=== PATIENT | female | born 2005 | race Two or more races ===

== ENCOUNTER 2024-12-14 15:15 | Observation (INO) | payer OTHER, SELFPAY ==
[2024-12-14 15:32] VITALS: BP 109/60; PULSE 85
[2024-12-14 15:36] VITALS: BP 109/60; PULSE 85; RESP 18; RESP 99; TEMP 36.9; O2SAT 99; BMI 28.8
[2024-12-14 15:53] VITALS: BP 107/74; PULSE 96
== END 2024-12-14 16:10 | disposition home or self-care (01) ==
PROVIDERS: Admitting Provider Student in an Organized Health Care Education/Training Program; PCP Family Medicine; Visit Provider Student in an Organized Health Care Education/Training Program
DX: Z34.02 Encounter for supervision of normal first pregnancy, second trimester (principal); Z3A.27 27 weeks gestation of pregnancy
CPT/HCPCS: 59899

== ENCOUNTER 2025-01-07 12:20 | Observation (INO) | payer OTHER, SELFPAY ==
[2025-01-07] VITALS (17 sets, daily range): BP systolic 120; BP diastolic 71; PULSE 90–129; RESP 18–98; TEMP 37.2; O2SAT 93–99; BMI 29.8
[2025-01-07] MEDS: RINGERS LACTATED 1000 ML 1,000 ML 999 ML IV (13:10)
[2025-01-07 13:13] LABS: Collection Type, Urine Clean Catch
[2025-01-07 13:29] LABS: Bacteria,Urine 1+; Bilirubin,Urine Negative (Negative); Blood,Urine Negative (Negative); Budding Yeast,Urine Present; Color,Urine Lt-Yellow (Lt Yel-Yel); Glucose, Urine Negative (Negative); Ketones,Urine Negative (Negative); Leukocyte Esterase,Urine Positive (Negative); Nitrite,Urine Negative (Negative); PH,Urine 6.5 (5.0-7.0); Protein,Urine Negative (Neg - Trace); RBC,Urine 19 /hpf (0-3); Specific Gravity,Urine 1.009 (1.001-1.035); Squamous Epithelial Cell,Urine 17 /hpf (0-5); Urobilinogen,Urine Negative mg/dL (0.0-1.0); WBC,Urine 49 /hpf (0-5)
[2025-01-07 13:50] LABS: Clarity,Urine Hazy (Clear/Hazy)
--- NOTE | 2025-01-07 14:23 | PC.NURSE ---
discharge insrructions reviewed with pt return if frequent ucs, vag bleeding like a period, rupture of membranes, decreased movement, kick count, copy of instructions given, pt agrees/understands
== END 2025-01-07 14:17 | disposition home or self-care (01) ==
PROVIDERS: Admitting Provider Student in an Organized Health Care Education/Training Program; Visit Provider Student in an Organized Health Care Education/Training Program
DX: O26.893 Other specified pregnancy related conditions, third trimester (principal); R10.9 Unspecified abdominal pain; Z3A.30 30 weeks gestation of pregnancy
CPT/HCPCS: 59025; 59899; 81001; J7120

== ENCOUNTER 2025-01-12 15:33 | Outpatient (CLI) | payer OTHER, SELFPAY ==
[2025-01-12 15:49] VITALS: TEMP 36.8; BMI 30.4
[2025-01-12 15:50] VITALS: BP 129/72; PULSE 96; RESP 100; RESP 18; TEMP 36.8
== END 2025-01-12 16:20 | disposition home or self-care (01) ==
LOC: S4S1 15:34 → S4SX 15:35
PROVIDERS: PCP Obstetrics & Gynecology; Referring Provider Obstetrics & Gynecology; Visit Provider Obstetrics & Gynecology
DX: O36.8130 Decreased fetal movements, third trimester, not applicable or unspecified (principal); Z3A.31 31 weeks gestation of pregnancy
CPT/HCPCS: 59025

== ENCOUNTER 2025-01-14 10:36 | Observation (INO) | payer OTHER, SELFPAY ==
[2025-01-14 10:44] VITALS: BMI 30.2
[2025-01-14 10:49] VITALS: BP 118/71; PULSE 110
--- NOTE | 2025-01-14 10:54 | XR_ITS ---
Examination: Complete OB ultrasound greater than 14 weeks Date and time of exam: January 14, 2025 1239 hours INDICATIONS: Patient fell today with lower back pain Findings: Viable intrauterine single fetus with single amniotic sac presentation cephalic Cardiac motion 144 BPM Placenta posterior grade 2 Umbilical cord insertion 3 vessel seen Amniotic fluid index 13.1 cm spine maternal right Cervix 3.4 cm Ovaries obscured by bowel gas. Composite estimated gestational age based on BPD, head circumference, abdominal circumference, femur length is 32 weeks 1 day Estimated weight 1902.9 g. Survey of intracranial anatomy, spinal anatomy, abdominal anatomy, four-chamber heart performed with no abnormalities identified. Impression: Viable intrauterine gestation cephalic presentation Placenta posterior grade 2 no abruption.
[2025-01-14 10:56] VITALS: BP 118/71; PULSE 110; RESP 100; RESP 16; TEMP 37; O2SAT 100
[2025-01-14 12:55] VITALS: BP 111/66; PULSE 88
[2025-01-14] MEDS: cefTRIAXone 1,000 MG, LIDOCAINE 1% 20 ML 2.1 ML IM (14:30)
[2025-01-14 14:51] LABS: Collection Type, Urine Clean Catch
[2025-01-14 14:59] LABS: Bilirubin,Urine Negative (Negative); Blood,Urine Negative (Negative); Clarity,Urine Clear (Clear/Hazy); Color,Urine Lt-Yellow (Lt Yel-Yel); Culture Indicated,Urine Not Indicated; Glucose, Urine Negative (Negative); Ketones,Urine Negative (Negative); Leukocyte Esterase,Urine Positive (Negative); Nitrite,Urine Negative (Negative); PH,Urine 7.5 (5.0-7.0); Protein,Urine Negative (Neg - Trace); RBC,Urine 2 /hpf (0-3); Squamous Epithelial Cell,Urine 1 /hpf (0-5); Urobilinogen,Urine Negative mg/dL (0.0-1.0); WBC,Urine 1 /hpf (0-5)
== END 2025-01-14 14:45 | disposition home or self-care (01) ==
PROVIDERS: Admitting Provider Obstetrics & Gynecology; Visit Provider Obstetrics & Gynecology
DX: O9A.213 Injury, poisoning and certain other consequences of external causes complicating pregnancy, third trimester (principal); S39.91XA Unspecified injury of abdomen, initial encounter; S39.92XA Unspecified injury of lower back, initial encounter; Z3A.32 32 weeks gestation of pregnancy; W06.XXXA Fall from bed, initial encounter
CPT/HCPCS: 59025; 59899; 76805; 81001; 96372; J0696; J3490

== ENCOUNTER 2025-02-10 17:00 | Observation (INO) | payer OTHER, MEDICAID, SELFPAY ==
[2025-02-10] VITALS (23 sets, daily range): BP systolic 124–136; BP diastolic 81–89; PULSE 86–126; RESP 18–100; TEMP 36.8–37.2; O2SAT 98–99; BMI 31.1
[2025-02-10 18:30] LABS: ROM Kit Lot # 57807112
[2025-02-10 18:31] LABS: ROM Swab Mixed By: YOUNB; Swb Mxed in Solvent 1 min? Yes
[2025-02-10 18:32] LABS: Rupture of Fetal Membranes Negative (Negative)
== END 2025-02-10 19:30 | disposition home or self-care (01) ==
PROVIDERS: Admitting Provider Obstetrics & Gynecology; Visit Provider Obstetrics & Gynecology
DX: Z34.03 Encounter for supervision of normal first pregnancy, third trimester (principal); Z3A.35 35 weeks gestation of pregnancy
CPT/HCPCS: 59025; 59899; 84112

== ENCOUNTER 2025-03-03 16:26 | Observation (INO) | payer OTHER, MEDICAID, SELFPAY ==
[2025-03-03] VITALS (14 sets, daily range): BP systolic 125; BP diastolic 79; PULSE 89–115; RESP 16–99; TEMP 37; O2SAT 97–100; BMI 32.3
--- NOTE | 2025-03-03 17:04 | XR_ITS ---
Examination: Biophysical profile, ultrasound Date and time of exam: March 03, 2025 1747 hours INDICATIONS: Decreased movement today Technique: Multiple transabdominal sonographic images of the pelvis abdomen obtained. Attention is directed to the breathing movement, gross body movement, amniotic fluid volume and tone. Findings: Amniotic fluid index 10.4 cm Total biophysical profile is 8 of 8. breathing movement is 2. Gross body movement is 2. tone is 2. Qualitative amniotic fluid volume is 2 Impression: Biophysical profile is 8 of 8.
== END 2025-03-03 18:33 | disposition home or self-care (01) ==
PROVIDERS: Admitting Provider Student in an Organized Health Care Education/Training Program; Visit Provider Student in an Organized Health Care Education/Training Program
DX: O36.8130 Decreased fetal movements, third trimester, not applicable or unspecified (principal); Z3A.38 38 weeks gestation of pregnancy
CPT/HCPCS: 59025; 59899; 76819; G0378

== ENCOUNTER 2025-03-12 06:34 | Inpatient (IN) | payer OTHER, MEDICAID, SELFPAY ==
[2025-03-12] VITALS (266 sets, daily range): BP systolic 97–144; BP diastolic 54–92; PULSE 62–178; RESP 17–22; TEMP 36.3–36.8; O2SAT 84–100; BMI 32.1
[2025-03-12] MEDS: Ampicillin Inj 2,000 MG in SODIUM CHLORIDE 0.9% (POP) 100 ML 200 MG IV (07:15)
[2025-03-12] MEDS: RINGERS LACTATED 1000 ML 1,000 ML 100 ML IV ×2 (07:15→11:35)
--- NOTE | 2025-03-12 08:10 | PD.LDHP ---
Documentation for date of: 03/12/25 OB Labor/Induct. HPI History of Present Illness Chief complaint: leaking fluid and contractions : 1 Para: 0 Term pregnancies: 0 pregnancies: 0 Living children: 0 History of Abortions: Spontaneous and Elective: 0 History of Vaginal deliveries: 0 History of sections: No History of : No YENY: 03/13/25 Gestational Age (weeks): 39 Gestational Age (days): 6 History of present illness: 19 y/o IUP 39w6d by best dates. PNC FHCN. 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 2cm. No problems in her . +GBS vaginal rectal colonization. Normal movement. No vaginal bleeding. History of Present Adequate Care: Yes Obstetrical complications: none Medical complications: none Labs Narrative: +GBS Review of Systems Review of Systems Narrative Review of Systems: No CP, Palpitations, SOB or LE pain or swelling. No VERGARA or change in vision or RUQ pain. Past Medical History Family History OTHER FAMILY HX: HTN, DM, Hypothyroidism, Ovarian Cancer. Surgical History SURGICAL: Negative Section OTHER SURGICAL HX: Dental Surgery: Root Canal. Social History SMOKING STATUS: Never smoker SUBSTANCE USE: does not use ALCOHOL: Never Meds Home Medications and Allergies Home Medications ?Medication ?Instructions ?Recorded ?Confirmed ?Type vitamin no.45-iron-FA 28 1 tab PO QDAY 01/14/25 03/12/25 History mg iron-1 mg chewable tablet Allergies Allergy/AdvReac Type Severity Reaction Status Date / Time No Known Allergies Allergy Verified 03/12/25 07:02 OB Exam Physical Exam Vital signs: Temp Pulse Resp BP Pulse Ox 98.2 F 68 18 144/91 H 99 03/12/25 07:00 03/12/25 07:28 03/12/25 07:00 03/12/25 07:28 03/12/25 08:08 Routine HEENT Exam Comments: Oropharynx and sclera clear Routine Respiratory Exam Comments: CLTA B/L Routine Cardiovascular Exam Comments: RRR Routine Abdominal Exam Comments: Gravid consistent with EFW 7.5 lbs Detailed Labor and Delivery Exam Dilation (cm): 2 Effacement (%): 50 Cervix position: anterior station: -2 Presentation: Vertex Membranes: ruptured Comments: per RN exam Routine Extremities Exam Comments: Nontender Routine Skin Exam Comments: No gross rashes or lesions Routine Neurological Exam Comments: No focal deficit OB Results Labs 03/12/25 06:57 03/12/25 06:57 Impressions Impression: IUP 39w6d by best dates. Rupture of membranes Not in labor +GBS Ampicillin for GBS prophylaxis Augmentation of labor with Pitocin Anticipate Informed consent obtained. Pt made aware of the risks, complications, alternatives and benefits of OVD and C/S and agrees with these modes of delivery if indicated.
[2025-03-12 08:17] LABS: Collection Type, Urine Clean Catch
[2025-03-12 08:32] LABS: Creatinine,Random Urine 38 mg/dL (30-125); Protein Total, Random Urine 10 mg/dL (1-14)
[2025-03-12 08:41] LABS: Basophils # (Auto) 0.1 Thou/mm3 (0.0-0.2); Basophils % (Auto) 1 % (0-2.5); Eosinophils # (Auto) 0.1 Thou/mm3 (0.0-0.5); Eosinophils % (Auto) 1 % (0-10); Hemoglobin 10.8 g/dL (12.0-16.0); Immature Granulocytes % (Auto) 1 % (0-0); Immature Granulocytes Auto 0.09 Thou/mm3 (0.00-0.00); Lymphocytes # (Auto) 2.7 Thou/mm3 (1.0-4.8); Lymphocytes % (Auto) 27 % (10-50); Mean Corpuscular HGB Conc 32.7 g/dl (31.0-37.0); Mean Corpuscular Hemoglobin 27.3 pg (25.0-35.0); Mean Corpuscular Volume 84 fL (80-100); Monocytes % (Auto) 10 % (0-12); Neutrophils # (Auto) 6.2 Thou/mm3 (1.8-7.7); Neutrophils % (Auto) 61 % (37-80); Nucleated Red Blood Cell % 0 /100 WBC (0); Platelet Count 185 Thou/mm3 (140-440); RDW Standard Deviation 46.5 fL (36.4-46.3); Red Blood Count 3.95 Miln/mm3 (4.00-5.20); White Blood Count 10.2 Thou/mm3 (4.5-11.0)
[2025-03-12 08:45] LABS: Bacteria,Urine Rare; Bilirubin,Urine Negative (Negative); Blood,Urine 1+ (Negative); Clarity,Urine Clear (Clear/Hazy); Color,Urine Colorless (Lt Yel-Yel); Glucose, Urine Negative (Negative); Ketones,Urine Negative (Negative); Leukocyte Esterase,Urine Positive (Negative); Nitrite,Urine Negative (Negative); Protein,Urine Negative (Neg - Trace); RBC,Urine 25 /hpf (0-3); Specific Gravity,Urine 1.009 (1.001-1.035); Squamous Epithelial Cell,Urine 2 /hpf (0-5); Urobilinogen,Urine Negative mg/dL (0.0-1.0); WBC,Urine 31 /hpf (0-5)
[2025-03-12 08:52] LABS: Alanine Aminotransferase 11 U/L (10-49); Albumin, Serum 3.5 gm/dL (3.5-5.0); Albumin/Globulin Ratio 1.3 (1.2-2.2); Alkaline Phosphatase 168 U/L (46-116); Anion Gap 12 (7-16); Aspartate Amino Transferase 19 U/L (0-34); BUN/Creatinine Ratio 14 Ratio (12-20); Bilirubin,Total 0.3 mg/dL (0.3-1.2); Blood Urea Nitrogen 7 mg/dL (9-23); Calcium 8.6 mg/dL (8.3-10.6); Carbon Dioxide 20.3 mMol/L (20.0-31.0); Chloride 109 mMol/L (98-107); Creatinine (Component) 0.5 mg/dL (0.6-1.3); Estimated Creatinine Clearance 182.1 mL/min (>60); Globulin 2.6 gm/dL (2.3-3.5); Glucose 77 mg/dL (74-106); Osmolality,Calculated 278 (275-295); Potassium 3.9 mMol/L (3.4-5.1); Sodium 141 mMol/L (136-145); Total Protein 6.1 gm/dL (5.7-8.2); Uric Acid 4.4 mg/dL (3.1-7.8); eGFR > 60 See Note
[2025-03-12 09:28] LABS: Syphilis Nonreactive (Nonreactive)
[2025-03-12 09:35] LABS: Fibrinogen 519 mg/dL (175-375); INR 0.9 (0.9-1.3); Prothrombin Time 9.9 Seconds (9.0-12.2)
[2025-03-12] MEDS: Ampicillin Inj 1,000 MG in SODIUM CHLORIDE 0.9% (Popper) 50 ML 50 MG IV ×3 (11:36→19:29)
[2025-03-12] MEDS: fentaNYL CIT INJ 50 mCg/ML AMP 2ML 100 MCG IVP (13:52)
[2025-03-12] MEDS: OXYTOCIN in NS 30 units 30 UNIT/500 ML BAG IV (15:34)
[2025-03-12] MEDS: MINERAL OIL 30 ML UDC TOP (23:00)
[2025-03-12] MEDS: OXYTOCIN in NS 20 units 20 UNIT/1,000 ML BAG 125 UNIT IV (23:02)
[2025-03-12] MEDS: BENZO/LANO/ALOE (Dermoplast) 60 GM CAN 1 SPRAY TOP (23:20)
--- NOTE | 2025-03-12 23:37 | PD.LDDELS ---
Data ([facility]) Data Hx Section: No : 1 Term: 0 : 0 Livin Abortions: Spontaneous & Theraputic: 0 Delivery Data (Sifuentes) Labor Data Initiation of labor: Induction Induction/Augmentation Agent: Pitocin ROM date: 03/12/25 ROM time: 06:20 Amniotic membrane rupture type: Spontaneous Amniotic fluid description: Clear Delivery Data EDC: 03/20/25 EDC calculated by:: LMP/early US confirmation Onset of labor date: 03/12/25 Onset of labor time: 17:00 Complete dilation date: 03/12/25 Complete dilation time: 22:18 [place] delivery date: 03/12/25 [place] delivery time: 23:02 Gestational age (weeks): 39 Gestational age (days): 6 Placenta delivery date: 03/12/25 Placenta delivery time: 23:11 Stage 1 total time: Labor - Stage 1 Duration 5 hours and 18 minutes Delivered by: Delivery nurse: IMTIAZ YANG [place] nurse: Morris Wiley RN Motor Brakeman at delivery: No Support person(s) at delivery: Phuong Morgan maternal sister Other staff at delivery: Misty Martini RN Delivery Method Delivery method: Normal Vaginal Delivery Presentation: Vertex position: OA Anesthesia Type Anesthesia Type: Epidural Placenta Placenta delivery description: Spontaneous Cord blood sent to lab: Yes cord blood collection: Cord Blood Type Episiotomy Episiotomy description: None Lacerations #1: Perineal: 2nd degree Perineal repair Sutures used for repair: 3.0 Chromic EBL Estimated blood loss (ml): 200 Umbilical Cord cord description: 3 Vessels Additional Procedures None Complications Complications: None [place] Data (Sifuentes) Data order: 1 [place]'s gender: Female Identification band number: [id number] weight (gms): 7 lb 4.404 oz Weight (pounds): 7 lbs and 4.4 ozs 1 minute: 9 5 minutes: 9
[2025-03-13] VITALS (13 sets, daily range): BP systolic 109–131; BP diastolic 59–83; PULSE 69–115; RESP 16–19; TEMP 36.3–37.1; O2SAT 97
[2025-03-13] MEDS: IBUPROFEN TAB 400 MG TABLET 800 MG PO ×2 (03:46→17:35)
--- NOTE | 2025-03-13 04:28 | PD.LDDS ---
DS: Providers Provider Date of admission: 03/12/25 06:57 Primary care physician: Physician No Primary/Family Admitting Provider: Tee Tolentino MD Attending Provider on Admission: Tee Tolentino MD Consults: 03/13/25 01:12 Referral Routine Comment: Attending Provider on DC: Tee Tolentino MD Discharging Provider: Tee Tolentino MD DS: Diagnosis Problem List Completed Was Problem List Reviewed/Reconciled?: Yes Summary/Hosp Course Brief History: 19 y/o IUP 39w6d by best dates. PNC FHCN. 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 2cm. No problems in her . +GBS vaginal rectal colonization. Normal movement. No vaginal bleeding. Peripartum Data Delivery Method: Normal Vaginal Delivery Episiotomy Description: None Time Spent with Patient Time attestation: Total time spent providing and/or coordinating discharge services: Exam Vital Signs Temp Pulse Resp BP Pulse Ox 98.7 F 115 H 19 130/83 91 L 03/13/25 01:45 03/13/25 01:22 03/13/25 01:45 03/13/25 01:22 03/12/25 23:03 Discharge Plan Plan Patient Disposition: HOME (Self Care) Patient condition on transfer: Stable Prescriptions/Referrals Prescriptions/Med Rec: New ibuprofen 600 mg tablet 600 mg PO Q6H PRN (Reason: pain) Qty: 30 0RF Continued vitamin #45-iron-FA 28 mg iron- 1 mg tablet,chewable 1 tab PO QDAY Referrals: No Primary/Family,Physician [Primary Care Provider] - Patient/Caregiver Discharge Instructions Discharge Activity: activity as tolerated Other Discharge Activity Instructions:: Follow up office 6 weeks. Print Language: Croatian Stand Alone Forms: Aletha Award Info., Patient Portal Info Letter Planned Discharge Date 03/14/25
[2025-03-13 06:21] LABS: Basophils # (Auto) 0.1 Thou/mm3 (0.0-0.2); Basophils % (Auto) 1 % (0-2.5); Eosinophils % (Auto) 0 % (0-10); Hematocrit 30.6 % (36.0-46.0); Hemoglobin 10.4 g/dL (12.0-16.0); Immature Granulocytes % (Auto) 1 % (0-0); Immature Granulocytes Auto 0.08 Thou/mm3 (0.00-0.00); Lymphocytes # (Auto) 2.1 Thou/mm3 (1.0-4.8); Lymphocytes % (Auto) 14 % (10-50); Mean Corpuscular Hemoglobin 27.4 pg (25.0-35.0); Mean Corpuscular Volume 81 fL (80-100); Monocytes # (Auto) 1.4 Thou/mm3 (0.0-0.8); Monocytes % (Auto) 9 % (0-12); Neutrophils # (Auto) 11.4 Thou/mm3 (1.8-7.7); Neutrophils % (Auto) 75 % (37-80); Nucleated Red Blood Cell % 0 /100 WBC (0); Platelet Count 161 Thou/mm3 (140-440); RDW Standard Deviation 45.1 fL (36.4-46.3); Red Blood Count 3.79 Miln/mm3 (4.00-5.20); White Blood Count 15.2 Thou/mm3 (4.5-11.0)
--- NOTE | 2025-03-13 08:52 | ESPR_ITS ---
Subjective Subjective Interval history: Delivery type: Patient doing well this morning. No acute complaints. Ambulating, tolerating p.o. and voiding without difficulty. HTN/Pre-Eclampsia screen: No chest pain, shortness of breath, headache, visual changes, epigastric or right upper quadrant pain. Breast-feeding, lochia diminishing. Bowel: Flatus+/ BM+ Exam Vital Signs Temp Pulse Resp BP Pulse Ox O2 Del Method 98.4 F 96 19 123/72 97 Room Air 03/13/25 03:09 03/13/25 03:09 03/13/25 03:09 03/13/25 03:09 03/13/25 03:09 03/13/25 03:09 Constitutional Constitutional: no acute distress Routine HEENT Exam Head: Present normocephalic and atraumatic Eye: Present EOMI and PERRL ENT: Present mucous membranes moist Routine Neck Exam Neck: Present supple and trachea midline Routine Respiratory Exam Respiratory: Present chest non-tender, lungs clear, normal breath sounds and no resp distress Routine Cardiovascular Exam Cardiovascular: Present RRR Routine Abdominal Exam Abdominal: Present soft and normoactive bowel sounds Routine Extremities Exam Extremities: Present full ROM Routine Skin Exam Skin: Present intact, dry and warm Routine Neurological Exam Neurological: Present alert, oriented X3 and CN II-XII intact Routine Psychiatric Exam Psychiatric: Present normal affect and normal thought process Objective Labs 03/13/25 05:40 03/12/25 06:57 Labs: Laboratory Results - last 24 hr 03/12/25 03/12/25 03/12/25 06:57 08:09 12:25 WBC 10.2 RBC 3.95 L Hgb 10.8 L Hct 33.0 L MCV 84 MCH 27.3 MCHC 32.7 RDW Std Deviation 46.5 H Plt Count 185 Neut % (Auto) 61 Lymph % (Auto) 27 [place] % (Auto) 10 Eos % (Auto) 1 Baso % (Auto) 1 Neut # (Auto) 6.2 Lymph # (Auto) 2.7 [place] # (Auto) 1.0 H Eos # (Auto) 0.1 Baso # (Auto) 0.1 Immature Gran # (Auto) 0.09 H Absolute Nucleated RBC 0.00 Immature Gran % 1 H Nucleated RBC % 0 PT 9.9 INR 0.9 APTT 24.0 Fibrinogen 519 H Sodium 141 Potassium 3.9 Chloride 109 H Carbon Dioxide 20.3 Anion Gap 12 BUN 7 L Creatinine 0.5 L Estim Creat Clear Calc 182.1 eGFR > 60 BUN/Creatinine Ratio 14 Glucose 77 Calculated Osmolality 278 Uric Acid 4.4 Calcium 8.6 Corrected Calcium 9.0 Total Bilirubin 0.3 AST 19 ALT 11 Alkaline Phosphatase 168 H Total Protein 6.1 Albumin 3.5 Globulin 2.6 Albumin/Globulin Ratio 1.3 Ur Collection Type Clean Catch Urine Color Colorless A Urine Clarity Clear Urine pH 7.0 Ur Specific [place] 1.009 Urine Protein Negative Urine Glucose (UA) Negative Urine Ketones Negative Urine Blood 1+ A Urine Nitrite Negative Urine Bilirubin Negative Urine Urobilinogen (Auto) Negative Ur Leukocyte Esterase Positive Urine RBC 25 H Urine WBC 31 H Ur Squamous Epith Cells 2 Urine Bacteria Rare Syphilis Serology Nonreactive Blood Type O Positive Antibody Screen NEGATIVE Blood Bank Wristband ID Yes 03/13/25 05:40 WBC 15.2 H D RBC 3.79 L Hgb 10.4 L Hct 30.6 L MCV 81 MCH 27.4 MCHC 34.0 RDW Std Deviation 45.1 Plt Count 161 Neut % (Auto) 75 Lymph % (Auto) 14 [place] % (Auto) 9 Eos % (Auto) 0 Baso % (Auto) 1 Neut # (Auto) 11.4 H Lymph # (Auto) 2.1 [place] # (Auto) 1.4 H Eos # (Auto) 0.0 Baso # (Auto) 0.1 Immature Gran # (Auto) 0.08 H Absolute Nucleated RBC 0.00 Immature Gran % 1 H Nucleated RBC % 0 PT INR APTT Fibrinogen Sodium Potassium Chloride Carbon Dioxide Anion Gap BUN Creatinine Estim Creat Clear Calc eGFR BUN/Creatinine Ratio Glucose Calculated Osmolality Uric Acid Calcium Corrected Calcium Total Bilirubin AST ALT Alkaline Phosphatase Total Protein Albumin Globulin Albumin/Globulin Ratio Ur Collection Type Urine Color Urine Clarity Urine pH Ur Specific [place] Urine Protein Urine Glucose (UA) Urine Ketones Urine Blood Urine Nitrite Urine Bilirubin Urine Urobilinogen (Auto) Ur Leukocyte Esterase Urine RBC Urine WBC Ur Squamous Epith Cells Urine Bacteria Syphilis Serology Blood Type Antibody Screen Blood Bank Wristband ID Assessment & Plan Problem List (1) (normal spontaneous vaginal delivery): Status: Acute Assessment and plan: 1. Continue routine /post-op care 2. Labs reviewed, cbc appropriate 3. Remove dressing/[place] 4. Encourage to ambulate, shower 5. Encourage PO intake, breast feeding (2) Group B streptococcal carriage complicating : Status: Acute (3) Premature rupture of membranes: Status: Acute Time Spent With Patient Time: Total time spent is greater than 50% in coordination of care (as documented) at patient's floor/unit and/or counseling patient:
[2025-03-13] MEDS: DOCUSATE SOD 100 MG CAPSULE PO (21:40)
[2025-03-14] MEDS: IBUPROFEN TAB 400 MG TABLET 800 MG PO (01:46)
[2025-03-14 03:49] VITALS: BP 119/78; PULSE 76; RESP 20; TEMP 36.6; O2SAT 98
[2025-03-14] MEDS: DOCUSATE SOD 100 MG CAPSULE PO (08:12)
[2025-03-14 08:15] VITALS: BP 123/77; PULSE 89; RESP 16; TEMP 36.9; O2SAT 98
--- NOTE | 2025-03-14 09:24 | ESDS_ITS ---
DS: Providers Provider Date of admission: 03/12/25 06:57 Primary care physician: Physician No Primary/Family Admitting Provider: Tee Tolentino MD Attending Provider on Admission: Adina Reeves CNM Consults: 03/13/25 01:12 Referral Routine Comment: Attending Provider on DC: Rick Elizabeth MD Discharging Provider: Rick Elizabeth MD DS: Diagnosis Discharge Diagnosis (1) (normal spontaneous vaginal delivery): Status: Acute (2) Group B streptococcal carriage complicating : Status: Acute (3) Premature rupture of membranes: Status: Acute Problem List Completed Was Problem List Reviewed/Reconciled?: Yes Summary/Hosp Course Brief History: 19 y/o IUP 39w6d by best dates. PNC FHCN. 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 2cm. No problems in her . +GBS vaginal rectal colonization. Normal movement. No vaginal bleeding. Peripartum Data Delivery Method: Normal Vaginal Delivery Episiotomy Description: None Time Spent with Patient Time attestation: Total time spent providing and/or coordinating discharge services: Exam Vital Signs Temp Pulse Resp BP Pulse Ox O2 Del Method 98.4 F 89 16 123/77 98 Room Air 03/14/25 08:15 03/14/25 08:15 03/14/25 08:15 03/14/25 08:15 03/14/25 08:15 03/14/25 08:15 Discharge Plan Plan Patient Disposition: HOME (Self Care) Patient condition on transfer: Stable Prescriptions/Referrals Prescriptions/Med Rec: New ibuprofen 600 mg tablet 600 mg PO Q6H PRN (Reason: pain) Qty: 30 0RF ibuprofen 400 mg Tablet 800 mg PO Q8HR PRN (Reason: Pain Scale 4-6 (Moderate) 10 Days Qty: 40 0RF docusate sodium 100 mg Capsule 100 mg PO BID 30 Days Qty: 60 0RF Continued vitamin #45-iron-FA 28 mg iron- 1 mg tablet,chewable 1 tab PO QDAY Referrals: Tee Tolentino MD [Physician] - No Primary/Family,Physician [Primary Care Provider] - Patient/Caregiver Discharge Instructions Discharge Activity: activity as tolerated Other Discharge Activity Instructions:: Follow up office 6 weeks. Print Language: Sami Stand Alone Forms: Aletha Award Info., Patient Portal Info Letter Discharge Order Discharge Orders: Discharge (Routine); Ordered 03/14/25 Ordered By: Rick Elizabeth Planned Discharge Date 03/14/25
--- NOTE | 2025-03-14 09:24 | PD.LDPPPRG ---
Subjective Subjective Interval history: Delivery type: Patient doing well this morning. No acute complaints. Ambulating, tolerating p.o. and voiding without difficulty. HTN/Pre-Eclampsia screen: No chest pain, shortness of breath, headache, visual changes, epigastric or right upper quadrant pain. Breast-feeding, lochia diminishing. Bowel: Flatus+/ BM+ Exam Vital Signs Temp Pulse Resp BP Pulse Ox O2 Del Method 98.4 F 89 16 123/77 98 Room Air 03/14/25 08:15 03/14/25 08:15 03/14/25 08:15 03/14/25 08:15 03/14/25 08:15 03/14/25 08:15 Constitutional Constitutional: no acute distress Routine HEENT Exam Head: Present normocephalic and atraumatic Eye: Present EOMI and PERRL ENT: Present mucous membranes moist Routine Neck Exam Neck: Present supple and trachea midline Routine Respiratory Exam Respiratory: Present chest non-tender, lungs clear, normal breath sounds and no resp distress Routine Cardiovascular Exam Cardiovascular: Present RRR Routine Abdominal Exam Abdominal: Present soft and normoactive bowel sounds Routine Extremities Exam Extremities: Present full ROM Routine Skin Exam Skin: Present intact, dry and warm Routine Neurological Exam Neurological: Present alert, oriented X3 and CN II-XII intact Routine Psychiatric Exam Psychiatric: Present normal affect and normal thought process Objective Labs 03/13/25 05:40 03/12/25 06:57 Assessment & Plan Problem List (1) (normal spontaneous vaginal delivery): Status: Acute Assessment and plan: PPD/POD#2 1. Continue routine care 2. Transition to PO meds. 3. Encourage to ambulate/ breast-feed 4. Anticipate discharge home today. (2) Group B streptococcal carriage complicating : Status: Acute (3) Premature rupture of membranes: Status: Acute Time Spent With Patient Time: Total time spent is greater than 50% in coordination of care (as documented) at patient's floor/unit and/or counseling patient:
== END 2025-03-14 11:17 | disposition home or self-care (01) | DRG 807 ==
LOC: S4SX 23:34 → S4NX 03-13 01:56
PROVIDERS: Admitting Provider Specialist; Visit Provider Advanced Practice Midwife
DX: O42.02 Full-term premature rupture of membranes, onset of labor within 24 hours of rupture (principal); Z37.0 Single live birth; O99.824 Streptococcus B carrier state complicating childbirth; Z3A.39 39 weeks gestation of pregnancy; O70.1 Second degree perineal laceration during delivery
CPT/HCPCS: 36415; 59025; 59409; 80053; 81001; 82570; 84156; 84550; 85025; 85384; 85610; 85730; 86780; 86850; 86900; 86901; 94762; J0290; J2590; J2795; J3010; J7050; J7120; A9270